=== PATIENT | female | born 1980 | race Caucasian/White ===

== ENCOUNTER 2020-03-20 11:50 | Day surgery (SDC) | payer BC ==
[2020-03-20 13:12] VITALS: TEMP 97.7
[2020-03-20] MEDS ORDERED: LACTATED RINGERS 1,000 ML IV ONE (13:12)
[2020-03-20] MEDS ORDERED: LIDOCAINE 1% (10MG/ML) FOR IV START INTRADERMA ONE (13:12)
[2020-03-20] MEDS ORDERED: LIDOCAINE 1% INJ 10MG/ML (20 ML MDV) ONE (13:45)
[2020-03-20] MEDS ORDERED: PROPOFOL 10 MG/ML 20 ML VIAL IV ONE (13:45)
--- NOTE | 2020-03-20 14:00 | P.PCN ---
Date of Procedure: 03/20/20 Procedure(s) Performed: BRIEF HISTORY: Patient is a [id number], pleasant, pleasant female, scheduled for an upper endoscopy as a part of evaluation of epigastric pain for the last few months duration . She recently had an episode of hematemesis a week ago. His been on Prilosec 20 mg daily and Carafate as needed. She was taking meloxicam for a few weeks prior to onset of the symptoms in November. She has history of gastric bypass surgery many years PROCEDURE PERFORMED: Esophagogastroduodenoscopy with biopsy. PREOPERATIVE DIAGNOSIS: Epigastric pain/acute upper GI bleed. IV sedation per anesthesia. PROCEDURE: After informed consent was obtained, the patient was brought into the endoscopy unit. IV sedation was administered by Anesthesia under continuous monitoring. Initially the Olympus GIF-140 video endoscope was inserted into the mouth. Esophagus intubated without any difficulty. It was gradually advanced into the stomach pouch and there was evidence of Marco-en-Y gastric bypass surgery noted. The afferent and efferent loops looked normal there was evidence of gastritis in the gastric pouch with erosions and small specks of old blood noted. No ulcerations noted. The scope was then withdrawn into the esophagus. The GE junction was located at 39 cm from the incisors. The esophagus appeared normal. There were no erosions or ulcerations seen and the patient tolerated the procedure well. IMPRESSION: 1. History Of gastric bypass surgery with Marco-en-Y anastomosis. 2. Gastritis of the gastric pouch with small specks of blood but no active bleeding. RECOMMENDATIONS: The findings of this examination were discussed with the patient as well as a family. She was advised to continue on Prilosec 20 mg daily and follow with the biopsy results..
[2020-03-20 14:09] VITALS: RESP 18
[2020-03-20 14:24] VITALS: BP 131/86; PULSE 68
== END 2020-03-20 14:58 | disposition home or self-care (01) ==
LOC: ORWHC2ENDO 11:50
PROVIDERS: ATTEND Internal Medicine Gastroenterology
DX: K29.51 Unspecified chronic gastritis with bleeding (principal); E07.9 Disorder of thyroid, unspecified; K25.4 Chronic or unspecified gastric ulcer with hemorrhage; Z11.59 Encounter for screening for other viral diseases; Z98.84 Bariatric surgery status; Z79.899 Other long term (current) drug therapy; Z97.2 Presence of dental prosthetic device (complete) (partial); Z88.8 Allergy status to other drugs, medicaments and biological substances; Z79.890 Hormone replacement therapy; Z86.2 Personal history of diseases of the blood and blood-forming organs and certain disorders involving the immune mechanism
CPT/HCPCS: 81025; 88305; 43239; U0003; J2001; J2704